=== PATIENT | male | born 1960 | race Hispanic/Latino ===

== ENCOUNTER → 2018-12-14 | Outpatient (CLI) | payer OTHER | END | disposition home or self-care (01) | LOC: RAH 12:48 | PROVIDERS: ATTEND Family Medicine | DX: N13.30 Unspecified hydronephrosis (principal); N20.0 Calculus of kidney; K57.90 Diverticulosis of intestine, part unspecified, without perforation or abscess without bleeding; I70.90 Unspecified atherosclerosis; M47.815 Spondylosis without myelopathy or radiculopathy, thoracolumbar region | CPT/HCPCS: 74176 ==

== ENCOUNTER 2022-04-01 07:20 | Emergency (ER) | payer OTHER ==
[~2022-04-01] VITALS: Ht 154.9 cm; Wt 81.6 kg
[2022-04-01 07:55] LABS: BASOPHILS % (AUTO) 0.3 % (0.0-5.0); EOSINOPHILS % (AUTO) 2.5 % (0.0-8.0); HEMATOCRIT 42.8 % (42-54); LYMPHOCYTES % (AUTO) 25.7 % (21.0-51.0); MEAN CORPUSCULAR HEMOGLOBIN 25.3 pg (27.0-33.0); MEAN CORPUSCULAR HGB CONC 30.4 g/dL (32.0-36.0); MEAN CORPUSCULAR VOLUME 83.3 fL (79-99); MONOCYTES % (AUTO) 8.2 % (3.0-13.0); NEUTROPHILS % (AUTO) 62.4 % (40.0-77.0); PLATELET COUNT (AUTO) 251 K/uL (130-400); RED BLOOD CELL COUNT(AUTO) 5.14 MIL/uL (4.50-6.20); RED CELL DISTRIBUTION WIDTH 15.2 % (11.0-15.5); WHITE BLOOD COUNT (AUTO) 9.2 K/uL (4.8-10.8)
[2022-04-01 08:16] LABS: ALBUMIN 3.5 g/dL (3.5-5.0); BILIRUBIN,TOTAL 0.2 mg/dL (0.2-1.0); CREATININE 1.2 mg/dL (0.5-1.5); MAGNESIUM 1.6 mg/dL (1.80-2.40); POTASSIUM 4.4 mmol/L (3.5-5.1); TOTAL PROTEIN, SERUM 7.6 g/dL (6.0-8.3)
[2022-04-01] MEDS ORDERED: MAGNESIUM 2GM PREMIX 50ML 50 ML IV SCH (08:30)
[2022-04-01] MEDS ORDERED: KETOROLAC 15MG/ML VIAL (15MG/ML) IV ONE (09:00)
[2022-04-01 09:38] LABS: APPEARANCE,URINE Clear (CLEAR); BILIRUBIN,URINE Negative (NEGATIVE); COLOR,URINE Yellow (YELLOW); GLUCOSE, URINE (UA) Negative (NEGATIVE); KETONES,URINE Negative (NEGATIVE); LEUKOCYTE ESTERASE ,URINE Negative (NEGATIVE); NITRATE,URINE Negative (NEGATIVE); OCCULT BLOOD,URINE Negative (NEGATIVE); PH,URINE 5.5 (5.0-8.0); PROTEIN,URINE Negative (NEGATIVE); UROBILINOGEN,URINE 0.2 mg/dL (0.2-1.0)
[2022-04-01] MEDS ORDERED: ACET-2079 PO (13:39)
[2022-04-01 13:56] VITALS: BP 143/66
== END 2022-04-01 13:57 | disposition home or self-care (01) ==
LOC: EDH 07:20
DX: M48.061 Spinal stenosis, lumbar region without neurogenic claudication (principal); M51.37 Other intervertebral disc degeneration, lumbosacral region; Z20.822 Contact with and (suspected) exposure to COVID-19; E78.00 Pure hypercholesterolemia, unspecified; I10 Essential (primary) hypertension; Z79.1 Long term (current) use of non-steroidal anti-inflammatories (NSAID); Z88.8 Allergy status to other drugs, medicaments and biological substances
CPT/HCPCS: 36415; 70450; 72131; 72148; 80053; 81003; 82550; 83735; 84484; 85025; 87635; 87804 ×2; 93005; 96365; 96366; 96375; 99285; C9803; J1885; J3475

== ENCOUNTER 2022-04-27 23:45 | Inpatient (IN) | payer OTHER ==
[~2022-04-27] VITALS: Ht 154.9 cm; Wt 84.3 kg
[~2022-04-27 23:45] MED LIST: ACET-2079 PO
[2022-04-28 00:36] LABS: BASOPHILS % (AUTO) 0.3 % (0.0-5.0); EOSINOPHILS % (AUTO) 0.5 % (0.0-8.0); HEMATOCRIT 41.9 % (42-54); MEAN CORPUSCULAR HEMOGLOBIN 25.7 pg (27.0-33.0); MEAN CORPUSCULAR HGB CONC 30.8 g/dL (32.0-36.0); MEAN CORPUSCULAR VOLUME 83.6 fL (79-99); MONOCYTES % (AUTO) 6.5 % (3.0-13.0); NEUTROPHILS % (AUTO) 82.9 % (40.0-77.0); PLATELET COUNT (AUTO) 249 K/uL (130-400); RED BLOOD CELL COUNT(AUTO) 5.01 MIL/uL (4.50-6.20); RED CELL DISTRIBUTION WIDTH 15.5 % (11.0-15.5); WHITE BLOOD COUNT (AUTO) 17.3 K/uL (4.8-10.8)
[2022-04-28 00:51] LABS: INR 0.94 (0.85-1.15); PROTHROMBIN TIME 10.3 SEC (9.6-11.6)
[2022-04-28 00:52] LABS: PARTIAL THROMBOPLASTIN TIME 22.8 SEC (26.3-35.5)
[2022-04-28 00:56] LABS: APPEARANCE,URINE CLOUDY (CLEAR); BILIRUBIN,URINE SMALL (NEGATIVE); COLOR,URINE RED (YELLOW); GLUCOSE, URINE (UA) NEGATIVE (NEGATIVE); KETONES,URINE 5 mg/dL (NEGATIVE); LEUKOCYTE ESTERASE ,URINE TRACE (NEGATIVE); NITRATE,URINE POSITIVE (NEGATIVE); OCCULT BLOOD,URINE LARGE (NEGATIVE); PROTEIN,URINE 100 mg/dL (NEGATIVE); UROBILINOGEN,URINE 0.2 mg/dL (0.2-1.0)
[2022-04-28 00:57] LABS: ALBUMIN 3.4 g/dL (3.5-5.0); BILIRUBIN,TOTAL 0.3 mg/dL (0.2-1.0); CREATININE 2.1 mg/dL (0.5-1.5); POTASSIUM 4.3 mmol/L (3.5-5.1); TOTAL PROTEIN, SERUM 7.5 g/dL (6.0-8.3)
[2022-04-28] MEDS ORDERED: ONDANSETRON 4MG INJ ONE ×2 (01:16→20:48)
[2022-04-28] MEDS ORDERED: MORPHINE 4 MG SYG ONE (01:16)
[2022-04-28 01:19] LABS: RBC,URINE TNTC /HPF (0-1)
[2022-04-28 01:20] LABS: BACTERIA,URINE None Seen /HPF (None Seen); SQUAMOUS EPITHELIAL CELL,UR Few /HPF (0-2)
[2022-04-28] MEDS ORDERED: ZOSYN 3.375GM +NS 50ML IV ONE (02:00)
[2022-04-28] MEDS ORDERED: MORPHINE 2 MG SYG ONE (02:25)
[2022-04-28] MEDS ORDERED: NITROGLYCERIN 1GM OINT 1 INCH/1GM TD ONE (02:49)
[2022-04-28] MEDS ORDERED: MORPHINE 2 MG SYG IVP PRN (03:30)
[2022-04-28] MEDS ORDERED: MORPHINE 4 MG SYG IVP PRN (03:30)
[2022-04-28] MEDS ORDERED: ZOSYN 3.375GM +NS 50ML IV SCH (03:30)
[2022-04-28] MEDS ORDERED: LACTULOSE 20 GM/30 ML UDCUP PO PRN (03:30)
[2022-04-28] MEDS ORDERED: ACETAMINOPHEN 650 MG SUPPOSITORY RC PRN (03:30)
[2022-04-28] MEDS ORDERED: HYDROCODONE/ACETAMINOPHEN 5/325 MG TAB PO PRN ×2 (03:30)
[2022-04-28] MEDS ORDERED: ONDANSETRON 4MG INJ IVP PRN (03:30)
[2022-04-28] MEDS: 0.9%NACL 1000ML 1,000 ML IV SCH ×3 (03:48→23:30)
[2022-04-28 04:15] VITALS: BP 185/100
[2022-04-28] MEDS: CLONIDINE HCL 0.1 MG TABLET PO PRN ×2 (05:37→15:04)
[2022-04-28] MEDS: INSULIN HUMULIN R 100 UNIT/ML 3ML SQ SCH ×4 (07:47→20:52)
[2022-04-28 08:00] VITALS: BP 180/110
[2022-04-28 11:44] LABS: CREATININE 3.6 mg/dL (0.5-1.5)
[2022-04-28 12:00] VITALS: BP 172/102
[2022-04-28] MEDS: PANTOPRAZOLE 40 MG TAB DR PO SCH (15:05)
[2022-04-28] MEDS: ZOSYN 3.375GM +NS 50ML IV SCH (15:26)
[2022-04-28 16:00] VITALS: BP_SYST 148; BP_DIAS 100; BP_DIAS 101
[2022-04-28] MEDS ORDERED: TAMSULOSIN HCL 0.4 MG CAP.ER.24H ONE (16:51)
[2022-04-28] MEDS: TAMSULOSIN HCL 0.4 MG CAP.ER.24H PO SCH (17:00)
[2022-04-28] MEDS ORDERED: METO-409 PO (17:10)
[2022-04-28] MEDS ORDERED: LISI40TA9 PO (17:10)
[2022-04-28] MEDS ORDERED: TAMS-1 PO (17:10)
[2022-04-28] MEDS ORDERED: OMEP40CA21 PO (17:10)
[2022-04-28] MEDS ORDERED: CITA-108 PO (17:10)
[2022-04-28] MEDS ORDERED: ATOR10 PO (17:10)
[2022-04-28] MEDS ORDERED: ARIP5TAB56 PO (17:10)
[2022-04-28 20:13] VITALS: BP 150/84
[2022-04-28] MEDS: ACETAMINOPHEN 325 MG TAB PO PRN (20:19)
[2022-04-28] MEDS ORDERED: GLYCOPYRROLATE 1 MG/5 ML SYRINGE ONE (20:48)
[2022-04-28] MEDS ORDERED: NEOSTIGMINE 5MG/5ML SYR IV ONE (20:48)
[2022-04-28] MEDS ORDERED: DEXAMETHASONE SOD PHOSPHATE 10MG/ML 1ML VIAL ONE (20:48)
[2022-04-28] MEDS ORDERED: MIDAZOLAM HCL 1 MG/ML 2ML VIAL ONE (20:48)
[2022-04-28] MEDS ORDERED: SUCCINYLCHOLINE 200MG/10ML SYR ONE (20:48)
[2022-04-28] MEDS ORDERED: PROPOFOL 10 MG/ML 20ML VIAL IV ONE (20:49)
[2022-04-28] MEDS ORDERED: ROCURONIUM 10MG/1ML SYR 10 MG/ML ML ONE (20:49)
[2022-04-28] MEDS ORDERED: FENTANYL CITRATE PF 50 MCG/1 ML 2ML VIAL ONE (20:49)
[2022-04-28] MEDS ORDERED: SUGAMMADEX SODIUM 200 MG/2 ML VIAL IV ONE (22:12)
[2022-04-28] MEDS ORDERED: IOHEXOL-350 50ML VIAL IV ONE (23:03)
[2022-04-28] MEDS ORDERED: EPHEDRINE SULFATE 50 MG/ML AMPULE ONE (23:25)
[2022-04-29] VITALS (23 sets, daily range): BP systolic 109–182; BP diastolic 55–100
[2022-04-29] MEDS: ZOSYN 3.375GM +NS 50ML IV SCH ×2 (02:29→13:24)
[2022-04-29 05:23] LABS: BASOPHILS % (AUTO) 0.1 % (0.0-5.0); HEMATOCRIT 35.6 % (42-54); LYMPHOCYTES % (AUTO) 3.8 % (21.0-51.0); MEAN CORPUSCULAR HEMOGLOBIN 25.8 pg (27.0-33.0); MEAN CORPUSCULAR HGB CONC 30.9 g/dL (32.0-36.0); MEAN CORPUSCULAR VOLUME 83.4 fL (79-99); MONOCYTES % (AUTO) 3.4 % (3.0-13.0); NEUTROPHILS % (AUTO) 91.4 % (40.0-77.0); PLATELET COUNT (AUTO) 198 K/uL (130-400); RED BLOOD CELL COUNT(AUTO) 4.27 MIL/uL (4.50-6.20); WHITE BLOOD COUNT (AUTO) 13.3 K/uL (4.8-10.8)
[2022-04-29 05:39] LABS: CREATININE 2.5 mg/dL (0.5-1.5); MAGNESIUM 1.5 mg/dL (1.80-2.40); PHOSPHORUS 4.3 mg/dL (2.5-4.9); POTASSIUM 4.9 mmol/L (3.5-5.1)
[2022-04-29] MEDS: INSULIN HUMULIN R 100 UNIT/ML 3ML SQ SCH ×4 (06:07→20:47)
[2022-04-29] MEDS: 0.9%NACL 1000ML 1,000 ML IV SCH ×2 (06:59→19:30)
[2022-04-29] MEDS: TAMSULOSIN HCL 0.4 MG CAP.ER.24H PO SCH (09:07)
[2022-04-29] MEDS: PANTOPRAZOLE 40 MG TAB DR PO SCH (09:07)
[2022-04-29] MEDS ORDERED: LISINOPRIL 40 MG TABLET PO SCH (11:00)
[2022-04-29] MEDS: ACETAMINOPHEN 325 MG TAB PO PRN (16:02)
[2022-04-29] MEDS: LISINOPRIL 40 MG TABLET PO SCH (20:40)
[2022-04-29] MEDS ORDERED: CLON1TAB12 PO (20:54)
[2022-04-29] MEDS ORDERED: ATORVASTATIN 20 MG TABLET PO SCH (21:00)
[2022-04-29] MEDS: CLONIDINE HCL 0.1 MG TABLET PO PRN (23:24)
[2022-04-30] VITALS: BP_SYST 163; BP_SYST 171; BP_DIAS 101; BP_DIAS 102
[2022-04-30] MEDS: ZOSYN 3.375GM +NS 50ML IV SCH (00:14)
[2022-04-30] MEDS: 0.9%NACL 1000ML 1,000 ML IV SCH (00:16)
[2022-04-30 04:00] VITALS: BP 187/93
[2022-04-30 05:02] LABS: HEMATOCRIT 36.5 % (42-54); MEAN CORPUSCULAR HEMOGLOBIN 25.6 pg (27.0-33.0); MEAN CORPUSCULAR HGB CONC 30.7 g/dL (32.0-36.0); MEAN CORPUSCULAR VOLUME 83.3 fL (79-99); RED BLOOD CELL COUNT(AUTO) 4.38 MIL/uL (4.50-6.20); RED CELL DISTRIBUTION WIDTH 16.1 % (11.0-15.5)
[2022-04-30 05:42] LABS: CREATININE 1.7 mg/dL (0.5-1.5); MAGNESIUM 1.1 mg/dL (1.80-2.40); PHOSPHORUS 2.8 mg/dL (2.5-4.9); POTASSIUM 4.3 mmol/L (3.5-5.1)
[2022-04-30] MEDS: INSULIN HUMULIN R 100 UNIT/ML 3ML SQ SCH ×2 (06:01→11:30)
[2022-04-30] MEDS: MAGNESIUM 2GM PREMIX 50ML 50 ML IV PRN ×2 (06:07→09:55)
[2022-04-30 08:00] VITALS: BP 170/97
[2022-04-30] MEDS ORDERED: METOPROLOL SUCCINATE 50 MG TAB.SR.24H PO SCH (09:00)
[2022-04-30] MEDS ORDERED: NON-FORMULARY MEDICATION 1 EACH (Omeprazole 40 MG) PO SCH (09:00)
[2022-04-30] MEDS ORDERED: CITALOPRAM 20 MG TABLET PO SCH (09:00)
[2022-04-30] MEDS ORDERED: ARIPIPRAZOLE 5 MG TABLET PO SCH (09:00)
[2022-04-30] MEDS: LISINOPRIL 40 MG TABLET PO SCH (09:14)
[2022-04-30] MEDS: TAMSULOSIN HCL 0.4 MG CAP.ER.24H PO SCH (09:14)
[2022-04-30] MEDS: PANTOPRAZOLE 40 MG TAB DR PO SCH (09:14)
[2022-04-30] MEDS ORDERED: CEPH500B PO (09:32)
[2022-04-30] MEDS ORDERED: CLONAZEPAM 1MG TAB PO SCH (10:00)
[2022-04-30] MEDS: ACETAMINOPHEN 325 MG TAB PO PRN (11:04)
[2022-04-30 12:00] VITALS: BP 155/86
== END 2022-04-30 14:00 | disposition home or self-care (01) | DRG 660 ==
LOC: EDH 23:45 → EDHIP 04-28 03:07 → 3BH 04-28 04:05
PROVIDERS: ADMIT Internal Medicine Critical Care Medicine; ATTEND Internal Medicine Critical Care Medicine
PROC: 0TC78ZZ Extirpation of Matter from Left Ureter, Via Natural or Artificial Opening Endoscopic (ICD-10-PCS; principal; 2022-04-28 22:48)
PROC: 0T788DZ Dilation of Bilateral Ureters with Intraluminal Device, Via Natural or Artificial Opening Endoscopic (ICD-10-PCS; 2022-04-28 22:48)
PROC: 0TC68ZZ Extirpation of Matter from Right Ureter, Via Natural or Artificial Opening Endoscopic (ICD-10-PCS; 2022-04-28 22:48)
PROC: BT1FYZZ Fluoroscopy of Left Kidney, Ureter and Bladder using Other Contrast (ICD-10-PCS; 2022-04-28 22:48)
DX: N13.6 Pyonephrosis (principal); N20.1 Calculus of ureter; N17.9 Acute kidney failure, unspecified; I10 Essential (primary) hypertension; Z20.822 Contact with and (suspected) exposure to COVID-19; E11.9 Type 2 diabetes mellitus without complications
CPT/HCPCS: 36415; 71045; 74176; 74420; 80048; 80053; 81001; 82360; 82550; 82948; 83605; 83735; 84100; 85025; 85027; 85610; 85730; 87040; 87088; 87635; A4344; C1758; C1769; C1894; C2617; G0378; J0330; J1100; J1815; J2250; J2270; J2405; J2543; J2704; J2710; J3010; J3475; J3490; J7030; Q9967

== ENCOUNTER 2022-05-13 20:02 | Inpatient (IN) | payer OTHER ==
[~2022-05-13] VITALS: Ht 152.4 cm; Wt 74.8 kg
[~2022-05-13 20:02] MED LIST changes: +ARIP5TAB56 PO; +ATOR10 PO; +CEPH500B PO; +CITA-108 PO; +CLON1TAB12 PO; +LISI40TA9 PO; +METO-409 PO; +OMEP40CA21 PO; +TAMS-1 PO
[2022-05-13] MEDS ORDERED: IBUPROFEN 600 MG TABLET PO ONE (20:30)
[2022-05-13] MEDS ORDERED: 0.9%NACL 1000ML 1,000 ML IV ONE ×2 (20:30→21:30)
[2022-05-13 20:59] LABS: BASOPHILS % (AUTO) 0.1 % (0.0-5.0); EOSINOPHILS % (AUTO) 0.1 % (0.0-8.0); HEMATOCRIT 40.6 % (42-54); LYMPHOCYTES % (AUTO) 6.5 % (21.0-51.0); MEAN CORPUSCULAR HEMOGLOBIN 25.9 pg (27.0-33.0); MEAN CORPUSCULAR VOLUME 83.4 fL (79-99); MONOCYTES % (AUTO) 8.4 % (3.0-13.0); PLATELET COUNT (AUTO) 331 K/uL (130-400); RED BLOOD CELL COUNT(AUTO) 4.87 MIL/uL (4.50-6.20); RED CELL DISTRIBUTION WIDTH 15.8 % (11.0-15.5); WHITE BLOOD COUNT (AUTO) 18.2 K/uL (4.8-10.8)
[2022-05-13 21:07] LABS: APPEARANCE,URINE CLEAR (CLEAR); BILIRUBIN,URINE NEGATIVE (NEGATIVE); COLOR,URINE YELLOW (YELLOW); GLUCOSE, URINE (UA) NEGATIVE (NEGATIVE); KETONES,URINE NEGATIVE (NEGATIVE); LEUKOCYTE ESTERASE ,URINE TRACE (NEGATIVE); NITRATE,URINE NEGATIVE (NEGATIVE); OCCULT BLOOD,URINE TRACE-LYSED (NEGATIVE); PROTEIN,URINE TRACE mg/dL (NEGATIVE); UROBILINOGEN,URINE 0.2 mg/dL (0.2-1.0)
[2022-05-13 21:12] LABS: CREATININE 1.4 mg/dL (0.5-1.5); POTASSIUM 4.6 mmol/L (3.5-5.1)
[2022-05-13 21:16] LABS: ALBUMIN 3.2 g/dL (3.5-5.0); TOTAL PROTEIN, SERUM 7.9 g/dL (6.0-8.3)
[2022-05-13 21:24] LABS: BACTERIA,URINE Few /HPF (None Seen); RBC,URINE 0-1 /HPF (0-1)
[2022-05-13 21:25] LABS: SQUAMOUS EPITHELIAL CELL,UR 0-2 /HPF (0-2)
[2022-05-13 21:26] LABS: URIC ACID CRYSTALS,URINE Moderate /LPF (None Seen)
[2022-05-13] MEDS ORDERED: ZOSYN 3.375GM +NS 50ML IV SCH (21:30)
[2022-05-13] MEDS ORDERED: LABETALOL 20MG SYG IV PRN (23:00)
[2022-05-13] MEDS ORDERED: HYDRALAZINE 20MG/ML VIAL IV PRN (23:00)
[2022-05-13] MEDS: ZOSYN 3.375GM +NS 50ML IV SCH (23:00)
[2022-05-13] MEDS ORDERED: TEMAZEPAM 15 MG CAPSULE PO PRN (23:00)
[2022-05-13] MEDS ORDERED: ONDANSETRON 4MG INJ IVP PRN (23:00)
[2022-05-13] MEDS ORDERED: ACETAMINOPHEN 650 MG SUPPOSITORY RC PRN (23:00)
[2022-05-13] MEDS ORDERED: CLONIDINE HCL 0.1 MG TABLET PO PRN (23:00)
[2022-05-13] MEDS: 0.9%NACL 1000ML 1,000 ML IV SCH (23:42)
[2022-05-14 00:15] VITALS: BP 113/67
[2022-05-14] MEDS ORDERED: METF-910 PO (00:29)
[2022-05-14] MEDS ORDERED: CLON0.1T2 PO (00:34)
[2022-05-14] MEDS: CLONAZEPAM 1MG TAB PO PRN ×2 (03:48→16:05)
[2022-05-14 04:01] VITALS: BP 140/79
[2022-05-14 05:56] LABS: BASOPHILS % (AUTO) 0.1 % (0.0-5.0); HEMATOCRIT 32.5 % (42-54); LYMPHOCYTES % (AUTO) 5.7 % (21.0-51.0); MEAN CORPUSCULAR HEMOGLOBIN 26.5 pg (27.0-33.0); MEAN CORPUSCULAR HGB CONC 31.7 g/dL (32.0-36.0); MEAN CORPUSCULAR VOLUME 83.5 fL (79-99); MONOCYTES % (AUTO) 8.9 % (3.0-13.0); NEUTROPHILS % (AUTO) 84.2 % (40.0-77.0); PLATELET COUNT (AUTO) 252 K/uL (130-400); RED BLOOD CELL COUNT(AUTO) 3.89 MIL/uL (4.50-6.20); RED CELL DISTRIBUTION WIDTH 16.1 % (11.0-15.5); WHITE BLOOD COUNT (AUTO) 14.6 K/uL (4.8-10.8)
[2022-05-14 06:11] LABS: CREATININE 1.2 mg/dL (0.5-1.5); MAGNESIUM 1.1 mg/dL (1.80-2.40); PHOSPHORUS 2.4 mg/dL (2.5-4.9); POTASSIUM 3.7 mmol/L (3.5-5.1)
[2022-05-14] MEDS: INSULIN HUMULIN R 100 UNIT/ML 3ML SQ SCH ×4 (06:55→21:00)
[2022-05-14] MEDS: 0.9%NACL 1000ML 1,000 ML IV SCH ×3 (07:00→22:54)
[2022-05-14] MEDS: ZOSYN 3.375GM +NS 50ML IV SCH ×3 (07:33→22:54)
[2022-05-14 08:12] VITALS: BP 115/69
[2022-05-14] MEDS: CITALOPRAM 20 MG TABLET PO SCH (09:00)
[2022-05-14] MEDS: MAGNESIUM 2GM PREMIX 50ML 50 ML IV PRN (09:02)
[2022-05-14] MEDS: ENOXAPARIN SODIUM 40 MG/0.4 ML SYRINGE SQ SCH (09:41)
[2022-05-14] MEDS: HYDROMORPHONE 1 MG INJ IVP PRN ×2 (09:41→21:24)
[2022-05-14 11:37] VITALS: BP 138/78
[2022-05-14] MEDS: TAMSULOSIN HCL 0.4 MG CAP.ER.24H PO SCH (16:06)
[2022-05-14] MEDS: LISINOPRIL 40 MG TABLET PO SCH ×2 (16:06→21:21)
[2022-05-14] MEDS: ACETAMINOPHEN 325 MG TAB PO PRN ×2 (16:07→22:54)
[2022-05-14 16:43] VITALS: BP 147/79
[2022-05-14 20:12] VITALS: BP 110/59
[2022-05-14] MEDS ORDERED: SIMVASTATIN 20 MG TABLET PO SCH (21:00)
[2022-05-15 00:11] VITALS: BP 138/94
[2022-05-15 03:58] VITALS: BP 110/63
[2022-05-15 04:40] LABS: BASOPHILS % (AUTO) 0.2 % (0.0-5.0); EOSINOPHILS % (AUTO) 0.9 % (0.0-8.0); HEMATOCRIT 29.7 % (42-54); LYMPHOCYTES % (AUTO) 11.7 % (21.0-51.0); MEAN CORPUSCULAR HEMOGLOBIN 26.2 pg (27.0-33.0); MEAN CORPUSCULAR HGB CONC 31.3 g/dL (32.0-36.0); MEAN CORPUSCULAR VOLUME 83.7 fL (79-99); MONOCYTES % (AUTO) 9.4 % (3.0-13.0); NEUTROPHILS % (AUTO) 76.9 % (40.0-77.0); PLATELET COUNT (AUTO) 244 K/uL (130-400); RED BLOOD CELL COUNT(AUTO) 3.55 MIL/uL (4.50-6.20); RED CELL DISTRIBUTION WIDTH 16.1 % (11.0-15.5); WHITE BLOOD COUNT (AUTO) 12.9 K/uL (4.8-10.8)
[2022-05-15 05:04] LABS: CREATININE 1.3 mg/dL (0.5-1.5); MAGNESIUM 1.8 mg/dL (1.80-2.40); POTASSIUM 3.6 mmol/L (3.5-5.1); TOTAL PROTEIN, SERUM 6.1 g/dL (6.0-8.3)
[2022-05-15] MEDS: INSULIN HUMULIN R 100 UNIT/ML 3ML SQ SCH ×3 (05:18→16:30)
[2022-05-15] MEDS: MAGNESIUM 2GM PREMIX 50ML 50 ML IV PRN (05:52)
[2022-05-15] MEDS: 0.9%NACL 1000ML 1,000 ML IV SCH ×2 (05:55→16:56)
[2022-05-15] MEDS: ZOSYN 3.375GM +NS 50ML IV SCH (05:55)
[2022-05-15 07:59] VITALS: BP 131/75
[2022-05-15] MEDS: TAMSULOSIN HCL 0.4 MG CAP.ER.24H PO SCH (09:20)
[2022-05-15] MEDS: LISINOPRIL 40 MG TABLET PO SCH (09:20)
[2022-05-15] MEDS: CITALOPRAM 20 MG TABLET PO SCH (09:20)
[2022-05-15] MEDS: ENOXAPARIN SODIUM 40 MG/0.4 ML SYRINGE SQ SCH (09:21)
[2022-05-15] MEDS ORDERED: MEROPENEM 1 GM VIAL IVP SCH (09:30)
[2022-05-15 11:21] VITALS: BP 140/82
[2022-05-15] MEDS: HYDROMORPHONE 1 MG INJ IVP PRN ×2 (12:37→12:38)
[2022-05-15 12:56] LABS: INR 1.08 (0.85-1.15); PROTHROMBIN TIME 11.7 SEC (9.6-11.6)
[2022-05-15 15:53] VITALS: BP 150/87
[2022-05-15] MEDS ORDERED: LEVO750T46 PO (17:04)
[2022-05-15] MEDS: ACETAMINOPHEN 325 MG TAB PO PRN (17:47)
== END 2022-05-15 18:25 | disposition home or self-care (01) | DRG 872 ==
LOC: EDH 20:02 → OBSVTOIN 22:40 → EDHIP 22:40 → 4AH 05-14 00:15
PROVIDERS: ADMIT Internal Medicine Critical Care Medicine; ATTEND Internal Medicine Critical Care Medicine
DX: A41.9 Sepsis, unspecified organism (principal); N13.6 Pyonephrosis; K57.32 Diverticulitis of large intestine without perforation or abscess without bleeding; E78.00 Pure hypercholesterolemia, unspecified; F32.A Depression, unspecified; I10 Essential (primary) hypertension; E78.5 Hyperlipidemia, unspecified; F41.9 Anxiety disorder, unspecified; Z87.442 Personal history of urinary calculi; D64.9 Anemia, unspecified; E88.09 Other disorders of plasma-protein metabolism, not elsewhere classified; E11.65 Type 2 diabetes mellitus with hyperglycemia; Z79.84 Long term (current) use of oral hypoglycemic drugs
CPT/HCPCS: 36415; 74176; 76770; 80048; 80053; 81001; 82948; 83605; 83735; 84100; 84145; 85025; 85610; 87040; 87077; 87088; 87186; 99291; G0378; J1170; J1650; J2185; J2543; J3475; J7030

== ENCOUNTER → 2022-06-15 | Outpatient (CLI) | payer OTHER ==
[~2022-06-15] MED LIST changes: -ACET-2079 PO; -ARIP5TAB56 PO; -CEPH500B PO; +CLON0.1T2 PO; +LEVO750T39 PO; +METF-910 PO; -METO-409 PO; -OMEP40CA21 PO
== END | disposition home or self-care (01) ==
LOC: RAH 11:54
PROVIDERS: ATTEND Neurological Surgery
DX: M47.817 Spondylosis without myelopathy or radiculopathy, lumbosacral region (principal); M54.50 Low back pain, unspecified; M48.07 Spinal stenosis, lumbosacral region; M43.5X6 Other recurrent vertebral dislocation, lumbar region
CPT/HCPCS: 72114

== ENCOUNTER → 2022-07-20 | Outpatient (CLI) | payer OTHER | END | disposition home or self-care (01) | LOC: SHCH 10:36 | PROVIDERS: ATTEND Student in an Organized Health Care Education/Training Program | DX: R06.02 Shortness of breath (principal); I10 Essential (primary) hypertension; E11.9 Type 2 diabetes mellitus without complications; E78.5 Hyperlipidemia, unspecified | CPT/HCPCS: 93306 ==

== ENCOUNTER 2022-08-24 12:00 | Observation (INO) | payer OTHER ==
[~2022-08-24] VITALS: Ht 152.4 cm; Wt 76.7 kg
[~2022-08-24 12:00] MED LIST changes: -CLON0.1T2 PO; -LEVO750T39 PO; -LISI40TA9 PO; -METF-910 PO; -TAMS-1 PO
[2022-08-24 13:29] LABS: BASOPHILS % (AUTO) 0.2 % (0.0-5.0); EOSINOPHILS % (AUTO) 2.5 % (0.0-8.0); HEMATOCRIT 40.3 % (42-54); LYMPHOCYTES % (AUTO) 27.9 % (21.0-51.0); MEAN CORPUSCULAR HEMOGLOBIN 26.6 pg (27.0-33.0); MEAN CORPUSCULAR HGB CONC 31.3 g/dL (32.0-36.0); MEAN CORPUSCULAR VOLUME 85.2 fL (79-99); MONOCYTES % (AUTO) 7.8 % (3.0-13.0); PLATELET COUNT (AUTO) 291 K/uL (130-400); RED BLOOD CELL COUNT(AUTO) 4.73 MIL/uL (4.50-6.20); RED CELL DISTRIBUTION WIDTH 14.5 % (11.0-15.5); WHITE BLOOD COUNT (AUTO) 8.7 K/uL (4.8-10.8)
[2022-08-24 13:41] LABS: CREATININE 1.3 mg/dL (0.5-1.5); POTASSIUM 3.9 mmol/L (3.5-5.1)
[2022-08-26 08:56] VITALS: BP 189/87
[2022-08-26] MEDS ORDERED: METF-444 PO (09:36)
[2022-08-26] MEDS ORDERED: ARIP5TAB56 PO (09:39)
[2022-08-26] MEDS ORDERED: METO-409 PO (09:39)
[2022-08-26] MEDS ORDERED: LOSA100T58 PO (09:39)
[2022-08-27] VITALS (19 sets, daily range): BP systolic 105–159; BP diastolic 60–94
[2022-08-27] MEDS: CEFAZOLIN SODIUM 1 GM VIAL IVP SCH ×2 (05:00→08:00)
[2022-08-27] MEDS ORDERED: CEFAZOLIN SODIUM 1 GM VIAL ONE ×2 (05:02→09:45)
[2022-08-27] MEDS ORDERED: BUPIVACAINE/EPI/PF 0.5% 30ML VIAL IJ ONE (05:02)
[2022-08-27] MEDS ORDERED: MORPHINE PF 100MG/10ML AMP IV ONE (05:03)
[2022-08-27] MEDS ORDERED: THROMBIN-JMI 20000 UNIT KIT TP ONE (05:03)
[2022-08-27] MEDS ORDERED: 0.9%NACL 1000ML 1,000 ML IV ONE (06:28)
[2022-08-27] MEDS ORDERED: LIDOCAINE PF 100MG/5ML (2%) SYRINGE 5ML ONE (06:42)
[2022-08-27] MEDS ORDERED: PROPOFOL 10 MG/ML 20ML VIAL IV ONE (06:42)
[2022-08-27] MEDS ORDERED: SUCCINYLCHOLINE CHLORIDE 20 MG/ML 10 ML VIAL ONE (06:42)
[2022-08-27] MEDS ORDERED: NEOSTIGMINE 5MG/5ML SYR IV ONE (06:43)
[2022-08-27] MEDS ORDERED: GLYCOPYRROLATE 1 MG/5 ML SYRINGE ONE (06:43)
[2022-08-27] MEDS ORDERED: DEXAMETHASONE SOD PHOSPHATE 10MG/ML 1ML VIAL ONE ×2 (06:43→06:46)
[2022-08-27] MEDS ORDERED: MIDAZOLAM HCL 1 MG/ML 2ML VIAL ONE (06:43)
[2022-08-27] MEDS ORDERED: ONDANSETRON 4MG INJ ONE ×2 (06:43→06:46)
[2022-08-27] MEDS ORDERED: ROCURONIUM 10MG/1ML SYR 10 MG/ML ML ONE ×2 (06:44→08:14)
[2022-08-27] MEDS ORDERED: FENTANYL CITRATE PF 50 MCG/1 ML 2ML VIAL ONE ×2 (06:44→08:38)
[2022-08-27] MEDS ORDERED: PHENYLEPHRINE HCL 10 MG/ML 1ML VIAL IV ONE (08:04)
[2022-08-27] MEDS ORDERED: GENTAMICIN 80 MG/NS 100 ML PB 100 ML IV ONE (11:44)
[2022-08-27] MEDS ORDERED: PROMETHAZINE HCL 25 MG/ML 1ML AMPULE IM PRN (12:00)
[2022-08-27] MEDS ORDERED: 0.9%NACL 10ML VIAL IVP PRN (12:00)
[2022-08-27] MEDS: LACTATED RINGERS 1000ML 1,000 ML IV SCH (12:00)
[2022-08-27] MEDS ORDERED: MORPHINE 2 MG SYG IVP PRN (12:00)
[2022-08-27] MEDS ORDERED: NALOXONE HCL 0.4 MG/1 ML ML ONE (12:00)
[2022-08-27] MEDS: DEXAMETHASONE SOD PHOSPHATE 4 MG/ML 1ML VIAL IVP SCH ×2 (12:00→15:45)
[2022-08-27] MEDS: CEFAZOLIN SODIUM 2 GM VIAL IVP SCH ×2 (15:44→20:44)
[2022-08-27] MEDS: HYDROCODONE/ACETAMINOPHEN 5/325 MG TAB PO PRN ×2 (18:02→22:02)
[2022-08-27] MEDS ORDERED: ATORVASTATIN 10 MG TABLET PO SCH (21:00)
[2022-08-27] MEDS ORDERED: METFORMIN HCL 500 MG TABLET PO SCH (21:00)
[2022-08-28 00:09] VITALS: BP 112/71
[2022-08-28] MEDS: DEXAMETHASONE SOD PHOSPHATE 4 MG/ML 1ML VIAL IVP SCH ×2 (00:29→04:55)
[2022-08-28] MEDS: LACTATED RINGERS 1000ML 1,000 ML IV SCH (01:20)
[2022-08-28 04:37] VITALS: BP 126/83
[2022-08-28 07:30] VITALS: BP 130/81
[2022-08-28] MEDS ORDERED: CLONAZEPAM 1MG TAB PO SCH (09:00)
[2022-08-28] MEDS ORDERED: LOSARTAN 100 MG TABLET PO SCH (09:00)
[2022-08-28] MEDS ORDERED: ARIPIPRAZOLE 5 MG TABLET PO SCH (09:00)
[2022-08-28] MEDS ORDERED: METOPROLOL SUCCINATE 50 MG TAB.SR.24H PO SCH (09:00)
[2022-08-28] MEDS ORDERED: CITALOPRAM 20 MG TABLET PO SCH (09:00)
[2022-08-28 11:00] VITALS: BP 135/80
== END 2022-08-28 13:00 | disposition home or self-care (01) ==
LOC: DAHIP 08-27 05:45 → EDSTATUS 08-27 12:00 → 4DH 08-27 13:07
PROVIDERS: ADMIT Neurological Surgery; ATTEND Neurological Surgery
DX: M48.061 Spinal stenosis, lumbar region without neurogenic claudication (principal); Z20.822 Contact with and (suspected) exposure to COVID-19; M43.16 Spondylolisthesis, lumbar region; I10 Essential (primary) hypertension; E78.5 Hyperlipidemia, unspecified; E11.9 Type 2 diabetes mellitus without complications; Z79.899 Other long term (current) drug therapy
CPT/HCPCS: 80048; 85025; 87426; 36415; 71045; 22842; 20930; 22614 ×2; 22612; 96374; 96376 ×2; 96375 ×2; 82948 ×6; 72110; G0378 ×24; G0379; A4663; J7120; A4344; A4649 ×4; J3010 ×2; J0690 ×5; J2310; J3490 ×2; J1100 ×5; J2710; J0330; J7030; J2001; J2250; J2704; J2274; J2405 ×2; J2370; J1580; A5113; C1776; A4215; A4223; A4222; A4221; A4600; A4510

== ENCOUNTER → 2022-09-28 | Outpatient (CLI) | payer OTHER ==
[~2022-09-28] MED LIST changes: +ARIP5TAB56 PO; +LOSA100T58 PO; +METF-444 PO; +METO-409 PO
== END | disposition home or self-care (01) ==
LOC: RAH 09:46
PROVIDERS: ATTEND Neurological Surgery
DX: M47.817 Spondylosis without myelopathy or radiculopathy, lumbosacral region (principal); M48.07 Spinal stenosis, lumbosacral region; M43.26 Fusion of spine, lumbar region
CPT/HCPCS: 72100

== ENCOUNTER → 2023-01-28 | Outpatient (CLI) | payer OTHER | END | disposition home or self-care (01) | LOC: RAH 12:44 | PROVIDERS: ATTEND Family Medicine | DX: K57.90 Diverticulosis of intestine, part unspecified, without perforation or abscess without bleeding (principal); R31.9 Hematuria, unspecified; N20.0 Calculus of kidney; M47.815 Spondylosis without myelopathy or radiculopathy, thoracolumbar region; N28.89 Other specified disorders of kidney and ureter; I70.0 Atherosclerosis of aorta | CPT/HCPCS: 74176 ==